=== PATIENT | male | born 1980 | race Caucasian/White ===

== ENCOUNTER 2019-09-21 10:46 | Emergency (ER) | payer OTHER ==
--- NOTE | 2019-09-21 11:19 | ER Document Report ---
ED Medical Screen (RME) - General Chief Complaint: Numbness Stated Complaint: NUMBNESS Time Seen by Provider: 09/21/19 11:10 Notes: Patient is a 38-year-old male who presents the emergency department with altered mental status and numbness to bilateral arms and hands. Patient was on amusement park ride yesterday and states that he was on the ride he ended up passing out. He asked his significant other, "it is the ride almost over?" and he does not remember anything after that. Significant other states that the patient is not acting his normal self. Patient has a history of hypertension. Exam: Delayed response in asking questions. I have greeted and performed a rapid initial assessment of this patient. A comprehensive ED assessment and evaluation of the patient, analysis of test results and completion of medical decision making process will be conducted by an additional ED providers. TRAVEL OUTSIDE OF THE [place] IN LAST 30 DAYS: No - Related Data Allergies/Adverse Reactions: codeine Allergy (Verified 09/21/19 11:06) Penicillins Allergy (Verified 09/21/19 11:06) Past Medical History - Past Medical History Cardiac Medical History: Reports: Hx Hypertension Pulmonary Medical History: Reports: Hx Pneumonia Physical Exam - Vital signs Vitals: Temp Pulse Resp BP Pulse Ox 97.6 F 115 H 20 165/90 H 100 09/21/19 10:50 09/21/19 10:50 09/21/19 10:50 09/21/19 10:50 09/21/19 10:50 Course - Vital Signs Vital signs: Temp Pulse Resp BP Pulse Ox 97.6 F 115 H 20 165/90 H 100 09/21/19 10:50 09/21/19 10:50 09/21/19 10:50 09/21/19 10:50 09/21/19 10:50
[2019-09-21 11:40] LABS: ABSOLUTE EOSINOPHILS # (AUTO) 0.2 10^3/uL (0.0-0.6); ABSOLUTE MONOCYTES (AUTO) 0.7 10^3/uL (0.1-1.4); ABSOLUTE NEUT (AUTO) 5.5 10^3/uL (1.7-8.2); BASOPHILS % (AUTO) 0.4 % (0-2); EOSINOPHILS % (AUTO) 2.2 % (0-6); HEMATOCRIT 41.8 % (37.9-51.0); HEMOGLOBIN 14.7 g/dL (13.5-17.0); LYMPHOCYTES % (AUTO) 24.2 % (13-45); MEAN CORPUSCULAR HGB CONC 35.1 g/dL (32.0-36.0); MEAN CORPUSCULAR VOLUME 86 fl (80-97); MONOCYTES % (AUTO) 8.4 % (3-13); PLATELET COUNT 342 10^3/uL (150-450); RED BLOOD COUNT 4.89 10^6/uL (4.35-5.55); RED CELL DISTRIBUTION WIDTH 13.7 % (11.5-14.0); SEGMENTED NEUTROPHILS % (AUTO) 64.8 % (42-78); TOTAL CELLS COUNTED % (AUTO) 100 %; WHITE BLOOD COUNT 8.5 10^3/uL (4.0-10.5)
--- NOTE | 2019-09-21 11:47 | RADIOLOGY REPORT (SQ) ---
EXAM DESCRIPTION: CT HEAD WITHOUT COMPLETED DATE/TIME: 09/21/2019 11:30 am REASON FOR STUDY: AMS COMPARISON: None. TECHNIQUE: Axial images acquired through the brain without intravenous contrast. Images reviewed wi th bone, brain and subdural windows. Additional sagittal and coronal reconstructions were generated. Images stored on PACS. All CT scanners at this facility use dose modulation, iterative reconstruction, and/or weight based d osing when appropriate to reduce radiation dose to as low as reasonably achievable (ALARA). [facility]: Dose Right [facility]: CareDose [facility]: Dose Right [facility]: Teradose 4D [facility]: MirDeneg RADIATION DOSE: CT Rad equipment meets quality standard of care and radiation dose reduction techniq ues were employed. CTDIvol: 53.2 mGy. DLP: 991 mGy-cm. LIMITATIONS: None. FINDINGS: There is no acute intracranial hemorrhage, vascular territorial infarct, extra-axial fluid collection, mass effect or midline shift. There is no effacement of the cerebral sulci or basal sub arachnoid cisterns. The rivers-white matter differentiation is preserved. The caliber the ventricles is concordant with the degree of sulcation. The orbits and globes are intact. The paranasal sinuses are clear. There is no fracture of the calv arium. IMPRESSION: No acute intracranial abnormality. EVIDENCE OF ACUTE STROKE: NO. COMMENT: Quality ID # [id number]: Final reports with documentation of one or more dose reduction techniques (e.g., Automated exposure control, adjustment of the mA and/or kV according to patient size, use of iterative reconstruction technique) TECHNICAL DOCUMENTATION: JOB ID: [id number] 2010 [employer]- All Rights Reserved Reading location - IP/workstation name: [email or web address]
[2019-09-21 12:00] LABS: ALBUMIN 4.8 g/dL (3.5-5.0); ANION GAP 10 (5-19); BILIRUBIN,TOTAL 0.4 mg/dL (0.2-1.3); BLOOD UREA NITROGEN 11 mg/dL (7-20); CALCIUM 9.6 mg/dL (8.4-10.2); CARBON DIOXIDE 29 mmol/L (22-30); CHLORIDE 101 mmol/L (98-107); GLUCOSE 133 mg/dL (75-110); NEONATAL BILIRUBIN RESULT 0.4 mg/dL (0.1-1.1); POTASSIUM 3.7 mmol/L (3.6-5.0); TOTAL PROTEIN 8.2 g/dL (6.3-8.2)
[2019-09-21 12:07] LABS: ALKALINE PHOSPHATASE 106 U/L (38-126); ASPARTATE AMINO TRANSFERASE 34 U/L (17-59)
--- NOTE | 2019-09-21 13:13 | ER Document Report ---
ED General - General Chief Complaint: Numbness Stated Complaint: NUMBNESS Time Seen by Provider: 09/21/19 11:10 Primary Care Provider: VIRGIL ISBELL FNP-C [Primary Care Provider] - Follow up as needed Notes: HPI: 38-year-old male with no real past medical history [facility] [place] [facility] [place] [facility] and supposedly while he was on the [employer] had a syncopal-like episode. Patient supposedly got off the roller coaster and was dizzy and slightly confused. This lasted only around 5 to 10 minutes. Since that time the patient has had some numbness to the left face and left upper extremity. He did have a very mild headache behind his left eye with no blurry vision but this has resolved. His states that it looks like he is at times "walking a little funny". Patient denies this. Patient denies any and all weakness. ROS: See HPI All other review of systems reviewed and otherwise negative Reviewed vital signs and nursing note as charted by RN. PHYSICAL EXAM: CONSTITUTIONAL: Alert and oriented and responds appropriately to questions. Well-appearing; well-nourished HEAD: Normocephalic; atraumatic EYES: PERRL; no nystagmus ENT: Normal nose; no rhinorrhea; moist mucous membranes; pharynx without lesions noted NECK: Supple without meningismus; non-tender; no cervical lymphadenopathy, no masses CARD: Regular rate and rhythm; no murmurs; symmetric distal pulses RESP: Normal chest excursion without splinting or tachypnea; breath sounds clear and equal bilaterally ABD/GI: Normal bowel sounds; non-distended; soft, non-tender; no palpable organomegaly or masses BACK: The back appears normal and is non-tender to palpation EXT: Normal ROM in all joints; non-tender to palpation; no edema SKIN: No acute lesions noted NEURO: CN 2-12 intact; 5/5 bilateral upper and lower extremity strength with sensation intact to light touch including the facial quadrants arms and legs. No nystagmus. No obvious cerebellar deficits PSYCH: The patient's mood and manner are appropriate. Grooming and personal hygiene are appropriate. TRAVEL OUTSIDE OF THE [place] IN LAST 30 DAYS: No - Related Data Allergies/Adverse Reactions: codeine Allergy (Verified 09/21/19 11:06) Penicillins Allergy (Verified 09/21/19 11:06) Past Medical History - Social History Smoking Status: Never Smoker Family History: Reviewed & Not Pertinent Patient has suicidal ideation: No Patient has homicidal ideation: No - Past Medical History Cardiac Medical History: Reports: Hx Hypertension Pulmonary Medical History: Reports: Hx Pneumonia Physical Exam - Vital signs Vitals: Temp Pulse Resp BP Pulse Ox 97.6 F 115 H 20 165/90 H 100 09/21/19 10:50 09/21/19 10:50 09/21/19 10:50 09/21/19 10:50 09/21/19 10:50 Course - Re-evaluation Re-evalutation: 09/21/19 13:13 Given the above history and physical examination, we will obtain CT imaging, cardiac panel, EKG, and reassess. Patient currently has no focal neurological deficits. Given the patient's strange presentation following a roller coaster with some left facial and left arm numbness, I did speak to the radiologist regarding the patient symptomatology and we have decided to order an initial CT scan of the head followed by an MRI of the head and neck. EKG shows a heart of 111, sinus tachycardia, normal axis, no ST elevation or depression. 09/21/19 15:11 Imaging as recorded. I have spoken directly to Dr. Leone and neuroradiologist regarding the patient's MRI findings. I discussed the A1 segment he discussed this and he states that he does not believe this is contributory. Patient still has no focal neurological deficits on repeat examination. EKG as recorded a yamila. Given the above history and physical, with the extensive testing today, I do not believe any further imaging or testing is necessary at this particular moment. Patient will be discharged home with strict return precautions and follow-up with the primary care physician. Vital signs are stable with a heart rate of 85. - Vital Signs Vital signs: Temp Pulse Resp BP Pulse Ox 97.6 F 97 16 153/98 H 100 09/21/19 10:50 09/21/19 11:15 09/21/19 11:15 09/21/19 11:15 09/21/19 11:41 - Laboratory Result Diagrams: 09/21/19 11:30 09/21/19 11:30 Laboratory results interpreted by me: 09/21/19 09/21/19 11:30 11:31 Glucose 133 H POC Glucose 128 H ALT 54 H Discharge - Discharge Clinical Impression: Syncope Qualifiers: Syncope type: unspecified Qualified Code(s): R55 - Syncope and collapse Altered mental status Qualifiers: Altered mental status type: unspecified Qualified Code(s): R41.82 - Altered mental status, unspecified Condition: Good Disposition: HOME, SELF-CARE Additional Instructions: Come back immediately for any repeat episodes of syncope, change in mentation, fevers or vomiting, weakness, return or increased numbness, chest pain, or any other acute problems. Please follow-up with the primary care physician as we have discussed. Referrals: VIRGIL ISBELL, DISCHARGE SPECIALIST-C [Primary Care Provider] - Follow up as needed
--- NOTE | 2019-09-21 13:17 | EKG REPORT ---
SEVERITY:- ABNORMAL ECG - SINUS TACHYCARDIA LEFT VENTRICULAR HYPERTROPHY : Confirmed by: Roland Desai MD 21-Sep-2019 13:16:19
--- NOTE | 2019-09-21 14:31 | RADIOLOGY REPORT (SQ) ---
EXAM DESCRIPTION: MRA HEAD WITHOUT COMPLETED DATE/TIME: 09/21/2019 2:11 pm REASON FOR STUDY: 12; roller coaster; left face and left arm numbness COMPARISON: None. TECHNIQUE: Axial 3-D iaol-kj-cyctie acquisition imaging performed through the brain in the area of t he [place]hoe of [place]. Images reformatted using 3-D MIPS. LIMITATIONS: None. FINDINGS: SOURCE IMAGES: The A1 segment on the right is not opacified. No other unanticipated findi ng. 3-D MIP: No aneurysm. The A1 segment on the right is not opacified. No significant stenosis. OTHER: No other significant finding. IMPRESSION: The right A1 segment is either absent or occluded. No other significant finding in the [place] of [place]. TECHNICAL DOCUMENTATION: JOB ID: [id number] 2010 [employer]- All Rights Reserved Reading location - IP/workstation name: [email or web address]
--- NOTE | 2019-09-21 14:35 | RADIOLOGY REPORT (SQ) ---
EXAM DESCRIPTION: MRA NECK WITHOUT COMPLETED DATE/TIME: 09/21/2019 2:11 pm REASON FOR STUDY: 12; roller coaster; left face and left arm numbness COMPARISON: None. TECHNIQUE: Axial 2-D volume acquisition imaging through the extracranial carotid and vertebral arter ies with reformatting using 3-D MIPS. LIMITATIONS: None. FINDINGS: RIGHT CAROTID ARTERY: No stenosis or occlusive changes. Limited visualization of the orig in. LEFT CAROTID ARTERY: No stenosis or occlusive changes. Limited visualization of the origin. VERTEBRAL ARTERY: The extracranial portions of the vertebral basilar system are preserved without willie nosis. No aneurysmal dilatation or dissection is seen. OTHER: No other significant finding. IMPRESSION: NO SIGNIFICANT STENOSIS. COMMENT: Quality ID #[id number]: Measurements of distal internal carotid diameter were used as the denomin ator for stenosis measurement. TECHNICAL DOCUMENTATION: JOB ID: [id number] 2010 [employer]- All Rights Reserved Reading location - IP/workstation name: [email or web address]
--- NOTE | 2019-09-21 14:39 | RADIOLOGY REPORT (SQ) ---
EXAM DESCRIPTION: MRI HEAD WITHOUT COMPLETED DATE/TIME: 09/21/2019 2:11 pm REASON FOR STUDY: 12; roller coaster; left face and left arm numbness COMPARISON: CT 09/21/2019 TECHNIQUE: Multiplanar imaging includes non-contrasted T1, T2, FLAIR, and diffusion with ADC map seq uences. Images stored on PACS. LIMITATIONS: None. FINDINGS: ANATOMY: No anomalies. Normal vascular flow voids. Pituitary fossa normal. CSF SPACES: Normal in size and contour. No hemorrhage. CEREBRUM: Sulci and gyri normal in size and contour. Normal white matter signal on FLAIR imaging. No evidence of hemorrhage, mass, or extraaxial fluid collection. POSTERIOR FOSSA: No signal alteration. No hemorrhage. No edema, masses or mass effect. Internal mercedez tory canals, cerebello-pontine angles, mastoids normal. DIFFUSION IMAGING: Negative for acute or sub-acute infarction. ORBITS: No masses. Globes normal. PARANASAL SINUSES: No fluid levels. Mucosa normal. OTHER: No other significant finding. IMPRESSION: NORMAL MRI OF THE BRAIN WITHOUT INTRAVENOUS GADOLINIUM CONTRAST. EVIDENCE OF ACUTE STROKE: NO. TECHNICAL DOCUMENTATION: JOB ID: [id number] 2010 [employer]- All Rights Reserved Reading location - IP/workstation name: [email or web address]
[2019-09-21 15:33] VITALS: BP 129/94
== END 2019-09-21 15:32 | disposition home or self-care (01) ==
LOC: ER 10:46
DX: R55 Syncope and collapse (principal); R41.82 Altered mental status, unspecified; R51 Headache; R42 Dizziness and giddiness; R20.0 Anesthesia of skin; R26.2 Difficulty in walking, not elsewhere classified; Y93.I1 Activity, roller coaster riding; I10 Essential (primary) hypertension; Z88.6 Allergy status to analgesic agent; Z88.0 Allergy status to penicillin
CPT/HCPCS: 36415; 70450; 70544; 70547; 70551; 80053; 82962; 85025; 93005; 93010; 99284

== ENCOUNTER → 2020-04-06 | Outpatient (CLI) | payer OTHER ==
[2020-04-06 10:15] VITALS: BP 134/90
--- NOTE | 2020-04-06 10:15 | ER RDC ASSESSMENT REPORT ---
Intake - In the Last 14 days Have you been in close contact with someone CONFIRMED: No Worked in Healthcare?: No - Symptoms Subjective Fever([place] feverish): No Chills: No Muscule Aches: No Runny Nose: No Sore Throat: No Cough (New or worsening chronic cough): No Shortness of breath: No Nausea or Vomiting: No Headache: No Abdominal Pain: No Diarrhea(3 or more loose stools in last 24 hours): No - Do you have any of the following Chronic lung disease: Asthma or emphysema or COPD: No Cystic Fibrosis: No Diabetes: No High Blood Pressure: Yes Cardiovascular Disease: No Chronic Kidney Disease: No Chronic Liver Disease: No Chronic blood disorder like Sickle Cell Disease: No Weak immune system due to disease or medication: No Neurologic condition that limits movement: No Developmental delay - Moderate to Severe: No Morbid Obesity (>100 pounds over ideal weight): No - Objective Temperature: 97.6 F Pulse Rate: 92 Respiratory Rate: 18 Blood Pressure: 134/90 O2 Sat by Pulse Oximetry: 99 Objective: Given above, testing performed: covid Disposition: Home; Selfcare General - General Stated Complaint: covid screen Time Seen by Provider: 04/06/20 10:00 Mode of Arrival: Ambulatory Information source: Patient - HPI Notes: Patient presents to clinic for COVID-19 testing after possibly coming in close contact with another COVID 19 positive individual. Patient is asymptomatic. They deny any cough, shortness of breath, fever, chills, muscle aches, rhinorrhea, sore throat, nausea or vomiting, headache, abdominal pain or diarrhea. Patient has no acute medical concerns. - Related Data Allergies/Adverse Reactions: codeine Allergy (Verified 09/21/19 11:06) Penicillins Allergy (Verified 09/21/19 11:06) Past Medical History - General Information source: Patient - Social History Smoking Status: Never Smoker Family History: Reviewed & Not Pertinent - Past Medical History Cardiac Medical History: Reports: Hx Hypertension Pulmonary Medical History: Reports: Hx Pneumonia EENT Medical History: Reports: None Neurological Medical History: Reports: None Endocrine Medical History: Reports: None Renal/ Medical History: Reports: None Malignancy Medical History: Reports None GI Medical History: Reports: None Musculoskeletal Medical History: Reports None Skin Medical History: Reports None Psychiatric Medical History: Reports: None Traumatic Medical History: Reports: None Infectious Medical History: Reports: None Past Surgical History: Reports: None Physical Exam - General General appearance: Appears well, Alert In distress: None Notes: PHYSICAL EXAMINATION: GENERAL: Well-appearing and in no acute distress. HEAD: Atraumatic, normocephalic. EYES: sclera anicteric, conjunctiva are normal. ENT: nares patent. Moist mucous membranes. NECK: Normal range of motion, supple without lymphadenopathy. LUNGS: No increased work of breathing. Lung sounds CTAB and equal. No wheezes rales or rhonchi. HEART: Regular rate and rhythm without murmurs. ABDOMEN: Soft, nontender, normal bowel sounds, no guarding. EXTREMITIES: Normal range of motion, no pitting edema. No cyanosis. NEUROLOGICAL: A&O x 3. Normal speech. PSYCH: Normal mood, normal affect. SKIN: Warm, Dry, normal turgor, no rashes or lesions noted Patient Education/Counseling Counseling/Education: Patient presents for COVID 19 testing after close exposure to another person who has tested positive for COVID 19. Patient is asymptomatic at this time. Patient does not have emergency worrying symptoms such as difficulty breathing, shortness of breath, chest pain, pressure, confusion or cyanosis. Patient appears suitable for discharge as vital signs are stable and patient is nontoxic in appearance. Good return precautions have been discussed with patient, patient verbalized understanding and is agreeable with discharge plan of care at this time. Guidance for worsening S/SX: As a person under investigation for Covid 19, the [place] department of Health and Human Services, division of public health advises you to adhere to the following guidance until your test results are reported to you. If your test result is positive, you will receive additional information from your provider and your local health department at that time. Remain at home until you are cleared by the health provider or public health authorities. Keep a log of visitors to your home, notify any visitors to your home of your isolation status. If you plan to move to a new address or leave the county, notify the local health department in your County. Call your doctor or seek care if you have an urgent medical need. Before seeking medical care, call ahead to get instructions from the provider before arriving at the medical office clinic or hospital. Notify them that you are being tested for the virus that causes Covid 19 so that arrangements can be made, as necessary, to prevent transmission to others in the healthcare setting. Next, notify the local health department in your county. If a medical emergency arises and you need to call 911, inform the first responders that you are being tested for the virus that causes Covid 19. Next, notify the local health department in your county. RDC Discharge - Discharge Clinical Impression: Encounter for screening laboratory testing for COVID-19 virus in asymptomatic patient Condition: Good Disposition: Home; Selfcare
== END ==
LOC: RDC 09:46
PROVIDERS: ATTEND Registered Nurse
DX: Z03.818 Encounter for observation for suspected exposure to other biological agents ruled out (principal); I10 Essential (primary) hypertension; Z88.0 Allergy status to penicillin; Z88.6 Allergy status to analgesic agent
CPT/HCPCS: 99201; 99211; U0003; C9803; 87635

== ENCOUNTER 2020-07-30 08:49 | Emergency (ER) | payer OTHER ==
--- NOTE | 2020-07-30 09:11 | ER Document Report ---
ED General - General Chief Complaint: Cough Stated Complaint: COUGH,SHORT OF BREATH Time Seen by Provider: 07/30/20 09:10 Primary Care Provider: VIRGIL ISBELL FNP-C [Primary Care Provider] - Follow up as needed TRAVEL OUTSIDE OF THE [place] IN LAST 30 DAYS: No - HPI Notes: 39-year-old male presents to the emergency room today for evaluation of productive cough, shortness of breath, headache, nausea, headache and diarrhea for the last 3 days. Denies chest pain, abdominal pain, vomiting. Patient states that he was diagnosed with COVID-19 on 07/27/2020. Has not seen a medical provider since then and was not prescribed any medications. Has tried [id number] Tylenol and ibuprofen without relief. Has not tried any cold medications. Non-smoker. Denies any history of asthma. Eating and drinking without any issues. Denies any rashes. Vaccinations are up-to-date. Denies chest pain,palpitations, dyspnea, vomiting, diarrhea, abdominal pain, hematuria,blurred vision, double vision, loss of vision, speech changes, LH, dizziness, syncope, wheezing, ST,neck pain, weakness, bowel or bladder dysfunction, saddle anesthesia, numbness or tingling in bilateral upper or lower extremities equally, muscle paralysis, weakness in bilateral upper or lower extremities equally or rash. Denies IV drug use. - Related Data Allergies/Adverse Reactions: codeine Allergy (Verified 07/30/20 09:56) Penicillins Allergy (Verified 07/30/20 09:56) Past Medical History - General Information source: Patient - Social History Smoking Status: Never Smoker Family History: Reviewed & Not Pertinent - Past Medical History Cardiac Medical History: Reports: Hx Hypertension Pulmonary Medical History: Reports: Hx Pneumonia Review of Systems - Review of Systems Constitutional: No symptoms reported EENT: No symptoms reported Cardiovascular: No symptoms reported Respiratory: See HPI Gastrointestinal: No symptoms reported Genitourinary: No symptoms reported Male Genitourinary: No symptoms reported Musculoskeletal: No symptoms reported Skin: No symptoms reported Hematologic/Lymphatic: No symptoms reported Neurological/Psychological: No symptoms reported Physical Exam - Vital signs Vitals: Temp Pulse Resp BP Pulse Ox 101.6 F H 111 H 18 142/90 H 99 07/30/20 09:08 07/30/20 09:08 07/30/20 09:08 07/30/20 09:08 07/30/20 09:08 - Notes Notes: MEDICATIONS: I agree with the patient medications as charted by the RN. ALLERGIES: I agree with the allergies as charted by the RN. PAST MEDICAL HISTORY/PAST SURGICAL HISTORY: Reviewed and agree as charted by RN. SOCIAL HISTORY: Reviewed and agree as charted by RN. FAMILY HISTORY: No significant familial comorbid conditions directly related to patient complaint EXAM: Reviewed vital signs as charted by RN. PHYSICAL EXAMINATION:reviewed vital signs by RN GENERAL: Well-appearing, well-nourished and in no acute distress. HEAD: Atraumatic, normocephalic. EYES: Pupils equal round and reactive to light, extraocular movements intact, sclera anicteric, conjunctiva are normal. ENT: Nares patent, oropharynx clear without exudates. Moist mucous membranes. NECK: Normal range of motion, supple without lymphadenopathy LUNGS: Breath sounds clear to auscultation bilaterally and equal. No wheezes rales or rhonchi. HEART: Regular rate and rhythm without murmurs ABDOMEN: Soft, nontender, nondistended abdomen. No guarding, no rebound. No masses appreciated. Musculoskeletal: Normal range of motion, no pitting or edema. No cyanosis. NEUROLOGICAL: Cranial nerves grossly intact. Normal speech, normal gait. Normal sensory, motor exams PSYCH: Normal mood, normal affect. SKIN: Warm, Dry, normal turgor, no rashes or lesions noted. Course - Re-evaluation Re-evalutation: 07/30/20 14:08 Afebrile vital stable no distress. Nurses notes reviewed. Patient did not complain of any chest pain when I interviewed him, this was notated in the nurse note when he takes a deep breath he feels chest pain. Patient adamantly denies any chest pain when I asked him several times. CBC is negative for leukocytosis or anemia, CMP negative for renal dysfunction, no electrolyte disturbances. Noted liver enzymes elevated, not 3 times in normal range, I am not concerned about any hepatic acute issues. Urinalysis unremarkable. Chest x-ray negative per radiology. Discussed with patient that the symptoms he is are related to the fact that he was diagnosed with Covid 3 days ago. He has not had any active respiratory distress, 99% on room air. Patient given 1 L of I V fluids, Zofran for nausea and Tylenol for antipyretic.reevaluation of vitals within normal limits After performing a Medical Screening Examination, I estimate there is LOW risk for RUPTURED ESOPHAGUS, PNEUMOTHORAX, PULMONARY EMBOLISM, ACUTE CORONARY SYNDROME, OR THORACIC AORTIC DISSECTION, thus I consider the discharge disposition reasonable. I have reevaluated this patient multiple times and no significant life threatening changes are noted. The patient and I have discussed the diagnosis and risks, and we agree with discharging home with close follow- up. We also discussed returning to the Emergency Department immediately if new or worsening symptoms occur. We have discussed the symptoms which are most concerning (e.g., bloody sputum, worsening pain or shortness of breath) that necessitate immediate return. The patient was evaluated during a global COVID- 19 pandemic and that diagnosis was suspected/considered upon their initial presentation. Their evaluation, treatment and testing was consistent with current guidelines for patients who present with complaints or symptoms and may be related to COVID-19. - Vital Signs Vital signs: Temp Pulse Resp BP Pulse Ox 100.8 F H 94 16 125/71 96 07/30/20 11:54 07/30/20 11:54 07/30/20 11:54 07/30/20 11:54 07/30/20 11:54 - Laboratory Results Result Diagrams: 07/30/20 09:52 07/30/20 09:52 Laboratory Results Interpreted: 07/30/20 07/30/20 07/30/20 09:52 09:52 10:20 Lymph % (Auto) 7.6 L Seg Neutrophils % 84.8 H AST 65 H ALT 103 H Urine Protein 30 H Critical Laboratory Results Reviewed: No Critical Results - Radiology Results Critical Radiology Results Reviewed: No Critical Results Discharge - Discharge Clinical Impression: COVID-19, Cough Condition: Stable Disposition: HOME, SELF-CARE Instructions: COVID-19 Guidance for Persons Under Investigation Additional Instructions: Your chest x-ray today was negative for any acute findings. Your blood work was normal. It is advised that you take the antibiotic as directed with food. Use your rescue inhaler as needed to take prednisone which is an anti-inflammatory as directed. Please self quarantine at home, wear your mask social distance and wash your hands frequently until you are 2 weeks out from being under quarantine. You do need to have 2 - Covid test 24 hours apart to be considered Covid free. Return immediately for any new or worsening symptoms. Follow up with primary care provider, call tomorrow to make followup appointment. Prescriptions: Prednisone [Deltasone 20 mg Tablet] 3 tab PO DAILY 5 Days #15 tablet Albuterol Sulfate [Proair HFA Inhalation Aerosol 8.5 gm MDI] 2 puff IH Q4H PRN #1 mdi PRN Reason: Azithromycin [Zithromax] 250 mg PO DAILY 5 Days #6 tablet Referrals: VIRGIL ISBELL, BUILDING SURVEYOR-C [Primary Care Provider] - Follow up as needed
[2020-07-30] MEDS ORDERED: ACETAMINOPHEN 325 MG TABLET PO ONE (09:12)
--- NOTE | 2020-07-30 09:48 | RADIOLOGY REPORT (SQ) ---
EXAM DESCRIPTION: CHEST SINGLE VIEW IMAGES COMPLETED DATE/TIME: 07/30/2020 9:25 am REASON FOR STUDY: fever COMPARISON: None. EXAM PARAMETERS: NUMBER OF VIEWS: One view. TECHNIQUE: Single frontal radiographic view of the chest acquired. RADIATION DOSE: NA LIMITATIONS: None. FINDINGS: LUNGS AND PLEURA: No opacities, masses or pneumothorax. No pleural effusion. MEDIASTINUM AND HILAR STRUCTURES: No masses. Contour normal. HEART AND VASCULAR STRUCTURES: Heart normal in size. Normal vasculature. BONES: No acute findings. HARDWARE: None in the chest. OTHER: No other significant finding. IMPRESSION: NO ACUTE RADIOGRAPHIC FINDING IN THE CHEST. TECHNICAL DOCUMENTATION: JOB ID: [id number] 2010 [employer]- All Rights Reserved Reading location - IP/workstation name: [id number]
[2020-07-30] MEDS ORDERED: NORMAL SALINE 1000 ML 1,000 ML IV PRN (10:05)
[2020-07-30 10:18] LABS: ABSOLUTE LYMPHOCYTES (AUTO) 0.6 10^3/uL (0.5-4.7); ABSOLUTE MONOCYTES (AUTO) 0.6 10^3/uL (0.1-1.4); BASOPHILS % (AUTO) 0.6 % (0-2); EOSINOPHILS % (AUTO) 0.2 % (0-6); HEMATOCRIT 41.1 % (37.9-51.0); LYMPHOCYTES % (AUTO) 7.6 % (13-45); MEAN CORPUSCULAR HEMOGLOBIN 28.6 pg (27.0-33.4); MEAN CORPUSCULAR VOLUME 84 fl (80-97); MONOCYTES % (AUTO) 6.8 % (3-13); PLATELET COUNT 238 10^3/uL (150-450); RED BLOOD COUNT 4.89 10^6/uL (4.35-5.55); RED CELL DISTRIBUTION WIDTH 13.1 % (11.5-14.0); SEGMENTED NEUTROPHILS % (AUTO) 84.8 % (42-78); TOTAL CELLS COUNTED % (AUTO) 100 %; WHITE BLOOD COUNT 8.2 10^3/uL (4.0-10.5)
[2020-07-30] MEDS ORDERED: ONDANSETRON HCL INJ/PF 4 MG/2 ML SDV IV ONE (10:31)
[2020-07-30 10:43] LABS: ALBUMIN 4.3 g/dL (3.5-5.0); ALKALINE PHOSPHATASE 103 U/L (38-126); ANION GAP 5 (5-19); ASPARTATE AMINO TRANSFERASE 65 U/L (17-59); BILIRUBIN,DIRECT 0.2 mg/dL (0.0-0.4); BILIRUBIN,TOTAL 0.4 mg/dL (0.2-1.3); BLOOD UREA NITROGEN 10 mg/dL (7-20); CALCIUM 8.8 mg/dL (8.4-10.2); CARBON DIOXIDE 30 mmol/L (22-30); CHLORIDE 102 mmol/L (98-107); GLUCOSE 103 mg/dL (75-110); POTASSIUM 4.2 mmol/L (3.6-5.0); TOTAL PROTEIN 7.5 g/dL (6.3-8.2)
[2020-07-30 10:44] LABS: APPEARANCE,URINE SLIGHTLY-CLOUDY; BILIRUBIN,URINE NEGATIVE (NEGATIVE); COLOR,URINE YELLOW; GLUCOSE, URINE NEGATIVE (NEGATIVE); KETONES,URINE NEGATIVE (NEGATIVE); LEUKOCYTE ESTERASE,URINE NEGATIVE (NEGATIVE); NITRITE,URINE NEGATIVE (NEGATIVE); PROTEIN,URINE 30 mg/dL (NEGATIVE); URINE SPECIFIC GRAVITY 1.025; UROBILINOGEN,URINE NEGATIVE mg/dL (<2.0)
[2020-07-30 11:57] VITALS: BP 125/71
== END 2020-07-30 12:32 | disposition home or self-care (01) ==
LOC: ER 08:49
DX: U07.1 COVID-19 (principal); R05 Cough; R06.02 Shortness of breath; R51.9 Headache, unspecified; R19.7 Diarrhea, unspecified; I10 Essential (primary) hypertension; Z88.6 Allergy status to analgesic agent; Z88.0 Allergy status to penicillin
CPT/HCPCS: 99284; 96361; 96374; 36415; 85025; 80053; 81001; 71045; J2405; J7030

== ENCOUNTER 2020-08-03 11:06 | Emergency (ER) | payer OTHER ==
[2020-08-03] MEDS ORDERED: NORMAL SALINE 1000 ML 1,000 ML IV ONE (11:47)
--- NOTE | 2020-08-03 11:48 | ER Document Report ---
ED Medical Screen (RME) - General Chief Complaint: Cough Stated Complaint: FEVER/TROUBLE BREATHING/COUGH/CONGESTION/NAUSEA Time Seen by Provider: 08/03/20 11:42 Primary Care Provider: VIRGIL ISBELL FNP-C [Primary Care Provider] - Follow up as needed Mode of Arrival: Ambulatory Information source: Patient Notes: 39-year-old male positive for Covid presenting to the emergency department with worsening cough, shortness of breath, fatigue, body aches. Patient reports taking Tylenol for his symptoms. Patient reports he felt so bad last night he slept on the floor. He states he opened the door to his house to let some cool air in which made him feel better. Patient reports he was not given any instruction on how long this would last. Lung sounds clear and equal bilaterally, no acute distress noted. I have greeted and performed a rapid initial assessment of this patient. A comprehensive ED assessment and evaluation of the patient, analysis of test re sults and completion of the medical decision making process will be conducted by additional ED providers. I have specifically instructed the patient or family members with the patient to immediately return to any nursing staff should anything change in the patient's condition or with their chief complaint. TRAVEL OUTSIDE OF THE [place] IN LAST 30 DAYS: No - Related Data Allergies/Adverse Reactions: codeine Allergy (Verified 07/30/20 09:56) Penicillins Allergy (Verified 07/30/20 09:56) Home Medications: albuterol. z-pack Past Medical History - Past Medical History Cardiac Medical History: Reports: Hx Hypertension Pulmonary Medical History: Reports: Hx Pneumonia Physical Exam - Vital signs Vitals: Temp Pulse Resp BP Pulse Ox 98.7 F 86 20 139/85 H 97 08/03/20 11:19 08/03/20 11:19 08/03/20 11:19 08/03/20 11:19 08/03/20 11:19 Course - Vital Signs Vital signs: Temp Pulse Resp BP Pulse Ox 98.7 F 86 20 139/85 H 97 08/03/20 11:19 08/03/20 11:19 08/03/20 11:19 08/03/20 11:19 08/03/20 11:19 Doctor's Discharge - Discharge Referrals: VIRGIL ISBELL FNP-C [Primary Care Provider] - Follow up as needed
--- NOTE | 2020-08-03 12:41 | RADIOLOGY REPORT (SQ) ---
EXAM DESCRIPTION: CHEST SINGLE VIEW IMAGES COMPLETED DATE/TIME: 08/03/2020 12:24 pm REASON FOR STUDY: covid+/short of breath COMPARISON: 07/30/2020 EXAM PARAMETERS: NUMBER OF VIEWS: One view. TECHNIQUE: Single frontal radiographic view of the chest acquired. RADIATION DOSE: NA LIMITATIONS: None. FINDINGS: LUNGS AND PLEURA: Subsegmental airspace disease left lower lobe. No effusions. MEDIASTINUM AND HILAR STRUCTURES: No masses. Contour normal. HEART AND VASCULAR STRUCTURES: Heart normal in size. Normal vasculature. BONES: No acute findings. HARDWARE: None in the chest. OTHER: No other significant finding. IMPRESSION: Atelectasis or early pneumonia left lower lobe. TECHNICAL DOCUMENTATION: JOB ID: [id number] 2010 [employer]- All Rights Reserved Reading location - IP/workstation name: [email or web address]
[2020-08-03 14:11] LABS: ABSOLUTE LYMPHOCYTES (AUTO) 0.8 10^3/uL (0.5-4.7); ABSOLUTE MONOCYTES (AUTO) 0.4 10^3/uL (0.1-1.4); ABSOLUTE NEUT (AUTO) 3.2 10^3/uL (1.7-8.2); BASOPHILS % (AUTO) 0.2 % (0-2); EOSINOPHILS % (AUTO) 0.6 % (0-6); HEMATOCRIT 39.7 % (37.9-51.0); HEMOGLOBIN 13.7 g/dL (13.5-17.0); LYMPHOCYTES % (AUTO) 17.5 % (13-45); MEAN CORPUSCULAR HEMOGLOBIN 28.8 pg (27.0-33.4); MEAN CORPUSCULAR HGB CONC 34.5 g/dL (32.0-36.0); MEAN CORPUSCULAR VOLUME 83 fl (80-97); MONOCYTES % (AUTO) 9.5 % (3-13); PLATELET COUNT 222 10^3/uL (150-450); RED BLOOD COUNT 4.76 10^6/uL (4.35-5.55); RED CELL DISTRIBUTION WIDTH 13.2 % (11.5-14.0); SEGMENTED NEUTROPHILS % (AUTO) 72.2 % (42-78); TOTAL CELLS COUNTED % (AUTO) 100 %; WHITE BLOOD COUNT 4.5 10^3/uL (4.0-10.5)
[2020-08-03 14:36] LABS: ALBUMIN 3.9 g/dL (3.5-5.0); ALKALINE PHOSPHATASE 89 U/L (38-126); ANION GAP 9 (5-19); ASPARTATE AMINO TRANSFERASE 73 U/L (17-59); BLOOD UREA NITROGEN 11 mg/dL (7-20); CALCIUM 8.5 mg/dL (8.4-10.2); CARBON DIOXIDE 28 mmol/L (22-30); CHLORIDE 102 mmol/L (98-107); GLUCOSE 96 mg/dL (75-110); POTASSIUM 3.7 mmol/L (3.6-5.0)
[2020-08-03 14:37] LABS: BILIRUBIN,DIRECT 0.4 mg/dL (0.0-0.4); BILIRUBIN,TOTAL 0.6 mg/dL (0.2-1.3); TOTAL PROTEIN 7.1 g/dL (6.3-8.2)
[2020-08-03] MEDS ORDERED: ONDANSETRON HCL INJ/PF 4 MG/2 ML SDV IV ONE (15:26)
--- NOTE | 2020-08-03 15:51 | ER Document Report ---
ED General - General Chief Complaint: Cough Stated Complaint: FEVER/TROUBLE BREATHING/COUGH/CONGESTION/NAUSEA Time Seen by Provider: 08/03/20 11:42 Primary Care Provider: VIRGIL ISBELL FNP-C [Primary Care Provider] - Follow up in 3-5 days Mode of Arrival: Ambulatory TRAVEL OUTSIDE OF THE [place] IN LAST 30 DAYS: No - HPI Notes: Patient is a 39-year-old male with a past medical history of hypertension who presents with fatigue and cough. Patient was diagnosed with Covid on July 26. He came to the ER on July 30 and had a work-up. He was discharged with a Z-Michael, prednisone, inhaler. He states that the inhaler is not working. He still has a cough that keeps him up at night. He denies any chest pain or shortness of breath. He has a sore throat from coughing. He states he has also been having headaches. He feels nauseous and has a decreased appetite. He is drinking water. He denies any abdominal pain. He still has some mild diarrhea on occasion. He returned to the ER today because he is just unsure how long the symptoms are supposed to last and he is not improving. He has tried Tylenol with minimal relief. - Related Data Allergies/Adverse Reactions: codeine Allergy (Verified 07/30/20 09:56) Penicillins Allergy (Verified 07/30/20 09:56) Home Medications: albuterol. z-pack Past Medical History - General Information source: Patient - Social History Smoking Status: Never Smoker Family History: Reviewed & Not Pertinent Patient has homicidal ideation: No - Past Medical History Cardiac Medical History: Reports: Hx Hypertension Pulmonary Medical History: Reports: Hx Pneumonia Review of Systems - Review of Systems Notes: CONSTITUTIONAL: Positive for intermittent fevers and fatigue. SKIN: No rash. HENT: No congestion, ear pain. Positive for sore throat with coughing. EYES: No recent vision problems or eye pain. CARDIOVASCULAR: No chest pain or edema. RESPIRATORY: Positive for cough. GASTROINTESTINAL: No abdominal pain, vomiting. Positive for diarrhea and nausea. Positive for decreased appetite. GENITOURINARY: No dysuria. MUSCULOSKELETAL: No joint pain or swelling. LYMPHATIC: No swollen glands. NEUROLOGIC: No seizures. No focal weakness or sensory changes. Positive for headache. HEMATOLOGIC: No unusual bruising or bleeding. PSYCHIATRIC: No depression or anxiety. Physical Exam - Vital signs Vitals: Temp Pulse Resp BP Pulse Ox 98.7 F 86 20 139/85 H 97 08/03/20 11:19 08/03/20 11:19 08/03/20 11:19 08/03/20 11:19 08/03/20 11:19 - General General appearance: Appears well In distress: None Notes: VITAL SIGNS: Within normal limits. GENERAL: No acute distress, non-toxic appearance. HEAD: Normal with no signs of head trauma. EYES: EOMI, conjunctiva normal, no discharge. EARS: Hearing grossly intact. NOSE: Normal. NECK: Normal range of motion, no tenderness, supple, no lymphadenopathy, No adenopathy, no JVD. CHEST: Cough present. Mild coarse lung sounds in lower lobes bilaterally. CARDIAC: Regular rate and rhythm. S1 and S2, without murmurs, gallops, or rubs. VASCULAR: No Edema. ABDOMEN: Normal and soft with no tenderness MUSCULOSKELETAL: Good range of motion of all major joints. Extremities without clubbing, cyanosis or edema. NEUROLOGICAL: Alert and oriented x 3. No focal sensory or strength deficits. Speech normal. Follows commands appropriately. PSYCHIATRIC: Normal Affect, judgement and mood. SKIN: Normal appearance with no rashes or lesions. Course - Re-evaluation Re-evalutation: 08/03/20 15:49 Patient is on room air. He is coughing in the room. I had a long discussion with him. I recommended we put him on Tessalon Perles. I told him he can take ibuprofen on occasion for his symptoms. Patient was educated on taking a multivitamin every day. He was also instructed on staying hydrated. Patient's x-ray does show possible new pneumonia. He is already finished a Z-Michael. I will place him on cefdinir. He is already finished steroids as well. Patient will be discharged with cefdinir, Tessalon Perles, Zofran. He was told to follow-up with his PCP. Patient was given strict return precautions for any shortness of breath or worsening symptoms. I believe his symptoms are likely due to Covid from what he is describing. He appears well and in no acute distress. He will be ambulated in the ER and if his oxygen stays normal, I believe he can be discharged with strict return precautions and close follow-up. 08/03/20 15:51 - Vital Signs Vital signs: Temp Pulse Resp BP Pulse Ox 99.6 F 86 18 131/79 H 97 08/03/20 16:52 08/03/20 16:52 08/03/20 16:52 08/03/20 16:52 08/03/20 16:52 - Laboratory Results Result Diagrams: 08/03/20 13:51 08/03/20 13:51 Laboratory Results Interpreted: 08/03/20 13:51 AST 73 H ALT 115 H Critical Laboratory Results Reviewed: No Critical Results - Radiology Results Critical Radiology Results Reviewed: No Critical Results Discharge - Discharge Clinical Impression: COVID-19, Cough Condition: Stable Disposition: HOME, SELF-CARE Instructions: COVID-19 Guidance for Persons Under Investigation Additional Instructions: Your work-up today is reassuring. Please take a multivitamin daily. Please re turn to the ER for any shortness of breath or worsening symptoms. Please follow-up with your family doctor. Prescriptions: Benzonatate [Tessalon Perles 100 mg Capsule] 100 mg PO Q8HP PRN #15 capsule PRN Reason: Cefdinir 300 mg PO BID #20 capsule Ondansetron [Zofran Odt 4 mg Tablet] 4 mg PO Q6H PRN 7 Days #10 tab.rapdis PRN Reason: Referrals: VIRGIL ISBELL FNP-C [Primary Care Provider] - Follow up in 3-5 days
[2020-08-03 16:53] VITALS: BP 131/79
== END 2020-08-03 16:53 | disposition home or self-care (01) ==
LOC: ER 11:06
DX: U07.1 COVID-19 (principal); R05 Cough; R50.9 Fever, unspecified; J02.9 Acute pharyngitis, unspecified; R11.0 Nausea; R53.83 Other fatigue; I10 Essential (primary) hypertension; R51.9 Headache, unspecified; R63.0 Anorexia; R19.7 Diarrhea, unspecified; Z88.6 Allergy status to analgesic agent; Z88.5 Allergy status to narcotic agent; Z87.01 Personal history of pneumonia (recurrent)
CPT/HCPCS: 99284; 96361; 96374; 36415; 85025; 80053; 71045; J2405; J7030